=== PATIENT | male | born 1965 | race Caucasian/White ===

== ENCOUNTER → 2017-07-14 | Outpatient (CLI) | payer BC ==
[~2017-07-14] MED LIST: ADVAIR 250/501 DISK IH; ALBUTEROL17 GM IH; CRESTOR5 MG PO; PROTONIX20 MG PO; SINGULAIR10 MG PO
== END | disposition home or self-care (01) ==
LOC: NUC 08:16
DX: R10.13 Epigastric pain (principal); K21.9 Gastro-esophageal reflux disease without esophagitis
CPT/HCPCS: 78264; A9541